=== PATIENT | female | born 1960 | race Caucasian/White ===

== ENCOUNTER → 2016-05-08 | Outpatient (CLI) | payer BC ==
[~2016-05-08] MED LIST: BENADRYL-DPS25 MG PO; CEPACOL SORE T1 EACH PO; COLACE-DPS100 MG PO; COMPAZINE10 MG PO; CYMBALTA60 MG PO; DULCOLAX-DPS10 MG PR; DULCOLAX-DPS5 MG PO; ELIQUIS2.5 MG PO; ESTRACE1 MG PO; FEOSOL-DPS325 MG PO; FLEET ENEMA133 ML PO; FLEXERIL-DPS10 MG PO; LIPITOR DPS10 MG PO; MAALOX DPS30 ML PO; MILK OF MAGNESI10 ML PO; MIRALAX PACKET17 GM PO; OXY IR DPS5 MG PO; SENOKOT S1 TAB PO; TUMS DPS500 MG PO; TYLENOL DPS325 MG PO; ULTRAM DPS50 MG PO; VITAMIN B-12500 MCG PO; VITAMIN D35000 UNI1 PO; XARELTO10 MG PO
== END | disposition home or self-care (01) ==
LOC: RAD.S 08:55
DX: Z12.31 Encounter for screening mammogram for malignant neoplasm of breast (principal)

== ENCOUNTER → 2016-06-29 | Outpatient (CLI) | payer BC | END | disposition home or self-care (01) | LOC: PTH.S 08:15 | DX: Z01.818 Encounter for other preprocedural examination (principal); E78.5 Hyperlipidemia, unspecified ==

== ENCOUNTER 2016-07-14 10:03 | Inpatient (IN) | payer BC ==
[~2016-07-14] VITALS: Ht 171.4 cm; Wt 84.0 kg
--- NOTE | 2016-07-14 14:37 | HP ---
ADMIT: 07/14/2016 RM/LOC: W.06 [facility] MR#: [id number] 2620 [facility] [address] [place] [id number] SANDRA SMITH [address] [place] [address] Pre-OP History and Physical SEX: F AGE: 56 : 1960 DATE OF SERVICE: CHIEF COMPLAINT: Bilateral knee pain. HISTORY OF PRESENT ILLNESS: The patient is a 56-year-old white female with bilateral knee DJD. She has failed nonoperative treatment, she desires total knee arthroplasty. She understands the risks and benefits of the procedure. PAST MEDICAL HISTORY: Significant for arthritis, jaw surgery, knee scope and hysterectomy. MEDICATIONS: 1. Atorvastatin. 2. Duloxetine. 3. Naprosyn. ALLERGIES: PENICILLIN. SOCIAL HISTORY: The patient is a former smoker, occasionally drinks alcohol. PHYSICAL EXAMINATION: HEENT: Normocephalic and atraumatic. CV: Regular rate and rhythm. LUNGS: Benign. ABDOMEN: Benign. NEUROLOGIC: Awake and oriented x3. MUSCULOSKELETAL: Shows the patient is short a degree to full extension. She has varus orientation of knees, 125-130 degrees of flexion. Tender over the medial joint line and patellofemoral joint. No ligamentous laxity. IMAGING DATA: X-rays show bilateral knee DJD, bone on bone medially and patellofemoral arthrosis, loose body in possible suprapatellar pouch on the left knee. ASSESSMENT AND PLAN: Bilateral knee degenerative joint disease. This point in time, I will plan left total knee arthroplasty. The patient understands the risks and benefits of the surgical intervention which included, but not limited to infection, DVT, arthrofibrosis, neurovascular injury, loosening, and , etc., and she desires to proceed. She will see Dr. Millard for preoperative medical clearance and follow postoperatively in the hospital for anticoagulation and any medical issues that may arise. Please refer to that H and P for any in-depth medical issues or medications changes. Tato Daniels MD/ derek JOB #: [id number] CC: Tato Daniels, Attending Physician ADMIT: 07/14/2016 RM/LOC: W.06 [facility] MR#: [id number] [address] [place] [phone] SANDRA SMITH [address] [place] [address] Pre-OP History and Physical SEX: F AGE: 56 : 1960 Trenton Guillermo [facility] Physician
[2016-07-18] MEDS ORDERED: LIPITOR DPS10 MG PO (20:37)
[2016-07-18] MEDS ORDERED: CYMBALTA60 MG PO (20:37)
[2016-07-18] MEDS ORDERED: ESTRACE1 MG PO (20:37)
[2016-07-18] MEDS ORDERED: VITAMIN D35000 UNI1 PO (20:38)
[2016-07-18] MEDS ORDERED: MIRALAX PACKET17 GM PO (20:38)
[2016-07-18] MEDS ORDERED: ELIQUIS2.5 MG PO (20:38)
[2016-07-18] MEDS ORDERED: SENOKOT S1 TAB PO (20:38)
[2016-07-18] MEDS ORDERED: TYLENOL DPS325 MG PO (20:39)
[2016-07-18] MEDS ORDERED: BENADRYL-DPS25 MG PO (20:40)
[2016-07-18] MEDS ORDERED: ULTRAM DPS50 MG PO (20:40)
[2016-07-18] MEDS ORDERED: COMPAZINE10 MG PO (20:40)
[2016-07-18] MEDS ORDERED: FLEXERIL-DPS10 MG PO (20:40)
[2016-07-18] MEDS ORDERED: DULCOLAX-DPS5 MG PO (20:41)
[2016-07-18] MEDS ORDERED: COLACE-DPS100 MG PO (20:41)
[2016-07-18] MEDS ORDERED: MAALOX DPS30 ML PO (20:41)
[2016-07-18] MEDS ORDERED: CEPACOL SORE T1 EACH PO (20:41)
[2016-07-18] MEDS ORDERED: DULCOLAX-DPS10 MG PR (20:42)
[2016-07-18] MEDS ORDERED: OXY IR DPS5 MG PO (20:42)
[2016-07-18] MEDS ORDERED: MILK OF MAGNESI10 ML PO (20:42)
[2016-07-18] MEDS ORDERED: TUMS DPS500 MG PO (20:42)
[2016-07-18] MEDS ORDERED: FEOSOL-DPS325 MG PO (20:43)
[2016-07-18] MEDS ORDERED: FLEET ENEMA133 ML PO (20:43)
--- NOTE | 2016-07-21 15:05 | OR ---
ADMIT: 07/14/2016 RM/LOC: 504 [facility] MR#: [id number] 2620 [facility] [address] [place] [phone] SANDRA SMITH [address] [place] [address] Operative/Delivery Room Report SEX: F AGE: 56 : 1960 SURGERY DATE: 07/14/2016 SURGEON: Tato Daniels MD PREOPERATIVE DIAGNOSIS: Left knee degenerative joint disease. POSTOPERATIVE DIAGNOSE: Left knee degenerative joint disease. PROCEDURE PERFORMED: Left total knee arthroplasty. ORGAN TUNER ELECTRONIC: MICHAEL Main ANESTHESIA: General. ESTIMATED BLOOD LOSS: Minimal. FLUIDS: Per anesthetic record. COMPLICATIONS: No complications. DRAINS: One drain. TOURNIQUET TIME: Approximately 78 minutes. CONDITION ON DISCHARGE: The patient returned to the recovery room in fair condition. INDICATION: The patient has DJD of the left knee. She desired total knee arthroplasty. She understood the risks and benefits of procedure and desired to proceed with the operation. PROCEDURE IN DETAIL: The patient was taken to the OR, transferred to the OR table. Spinal had been placed. Left lower extremity had a well-padded tourniquet placed. The left lower extremity was prepped and draped in the usual sterile fashion. It was exsanguinated and tourniquet was inflated to 250 mmHg. Due to the patient being restless, she underwent general anesthesia. Incision was made along the medial aspect of the tibial tubercle carried proximal to the patella through the skin and subcutaneous tissue with a skin knife. Medial arthrotomy was then performed with a #10 blade. The patella was everted and knee flexed. ACL, PCL, medial and lateral menisci excised. Step drill was then used to open the intramedullary canal of femur. I placed an IM alignment guide with the distal femoral cutting block down the intramedullary canal of the femur, set at 13 mm resection and 5 degrees of valgus, cut due to a slight flexion contracture. I pinned it to the anterior aspect of the distal femur and removed the IM alignment guide. I then cut the distal femur using an oscillating saw and this cutting block. I removed the cutting block and sized the femur to 3. I placed a size #3 four-in-one cutting block on the distal aspect of the femur in 3 degrees of external rotation, made the 4 appropriate cuts using an oscillating saw. I removed this cutting block and placed the box ADMIT: 07/14/2016 RM/LOC: 504 [facility] MR#: [id number] [address] [phone] SANDRA SMITH [address] [place] [address] Operative/Delivery Room Report SEX: F AGE: 56 : 1960 cutting jig in the distal aspect of the femur, and cut the box out of the distal femur using a reciprocating saw. The proximal tibia was then cut perpendicular to the long axis of the tibial shaft using the proximal tibial cutting guide and oscillating saw. The posterior aspect of the patella was cut and flushed with the posterior aspects of the quadriceps patella tendons using the patella cutting saw. This was sized at a 35 and step drilled with the guide. Trial components were then placed. A size #3 tray with 10 mm insert gave excellent range of motion, stability, and patellar tracking. After I had placed trial components, I then step drilled the femoral component and step drilled and cruciate punched. Trial component removed and all trial components were thoroughly irrigated the knee with bacitracin solution and injected with an Exparel-like compound. I then cemented the tibia, patella, and femoral components in place removing all extraneous cement as it dried. I then impacted the 10 mm insert in the tibial tray. Ran the knee through a range of motion. It had excellent range of motion, stability and patellar tracking. Thus, one deep drain was then placed. Medial arthrotomy was closed using #1 Vicryl. Subcutaneous tissue was closed using 2-0 Vicryl. Skin closed using man. Wounds were washed, dried, and dressed. Sterile Adaptic, 4x4s, ABD, Webril Kimo wrap, and ice pad were placed on top of the Kimo wrap. Drapes removed and tourniquet let down. The patient was reversed from general anesthesia. Transferred back to recovery room in fair condition. Tato Daniels MD/ derek JOB #: [id number] CC: Tato Daniels, Attending Physician Trenton Guillermo, Family Physician
--- NOTE | 2016-07-31 07:33 | DS ---
ADMIT: 07/14/2016 RM/LOC: 504 [facility] MR#: [id number] 26[address] [facility] [address] [place], [place] [phone] SANDRA SMITH [address] [place] [address] General Discharge Summary SEX: F AGE: 56 : 1960 ADMISSION DATE: 07/14/2016 DISCHARGE DATE: 07/17/2016 REASON FOR ADMISSION: Elective left total knee arthroplasty after failing conservative care. PREOPERATIVE DIAGNOSIS: Left knee degenerative joint disease. POSTOPERATIVE DIAGNOSIS: Left knee degenerative joint disease. PROCEDURE PERFORMED: Left total knee arthroplasty. SURGEON: Tato Daniels MD. WAREHOUSE DELIVERY DRIVER: Vikas Dominguez PA-C ANESTHESIA: General. ESTIMATED BLOOD LOSS: Minimal. COMPLICATIONS: None. ACTIVE MEDICAL PROBLEMS: Hyperlipidemia, osteoarthritis of both knees, jaw surgery, knee scope, and hysterectomy. HOSPITAL COURSE: The patient was admitted on 07/14/2016, for elective bilateral total knee arthroplasty. It was discovered that she had a bug bite on the right knee which appeared blistered, so the bilateral total knee arthroplasty was canceled and she was admitted for a left total knee arthroplasty, which was done by Dr. Daniels without any complications. The patient tolerated the procedure well. Postoperatively, her pain was well controlled with the use of oral analgesics. She did suffer from acute blood- loss anemia, her hemoglobin dropped to 10.5 on 07/16/2016, but she remained hemodynamically stable and did not require blood transfusion. She was doing well with pain control and physical therapy exercises and by 07/17/2016, she was stable, safe, and ready for discharge with plans for outpatient physical therapy. DISCHARGE MEDICATIONS: 1. Estradiol 1 mg every morning. 2. Atorvastatin 10 mg at bedtime. 3. Duloxetine 60 mg everyday. 4. Eliquis 2.5 mg twice daily. 5. MiraLax 17 g everyday. 6. Vitamin D 2000 units at bedtime. 7. Senokot 2 tablets twice daily. 8. Tylenol 650 mg every 4 hours as needed. 9. Tramadol 50 mg one to two tablets every 6 hours as needed. 10.Compazine 10 mg every 6 hours as needed for nausea. ADMIT: 07/14/2016 RM/LOC: 504 [facility] MR#: [id number] [address] [facility] [address] [place] [phone] SANDRA SMITH [address] [place] [address] General Discharge Summary SEX: F AGE: 56 : 1960 11.Flexeril 10 mg three times daily as needed for muscle spasms. 12.Benadryl 25 mg every 6 hours as needed. 13.Colace 100 mg twice daily as needed. 14.Dulcolax 5 mg twice daily as needed. 15.Maalox 30 mL every 6 hours as needed. 16.Milk of magnesia 10 mL daily as needed. 17.Oxycodone IR 5 mg one to two tablets every 4 hours as needed for breakthrough pain. 18.Tums 500 mg every four to six hours as needed. 19.Ferrous sulfate 325 mg everyday. DISCHARGE INSTRUCTIONS: The patient was discharged home with plans for outpatient physical therapy per total knee arthroplasty protocol. Follow up in the orthopedic office in 2 weeks for wound check, in 6 weeks with x-ray. Follow up with primary care as directed. MICHAEL Luciano / Tato Daniels MD / derek JOB #: [id number] CC: Tato Daniels MD, Attending Physician Trenton Guillermo MD, Family Physician
--- NOTE | 2016-08-11 13:58 | DS ---
ADMIT: 07/14/2016 RM/LOC: 504 [facility] MR#: [id number] [address] [facility] [address] [place] [phone] SHELBY SMITH [address] [place] [address] General Discharge Summary SEX: F AGE: 56 : 1960 ADMISSION DATE: 07/14/2016 DISCHARGE DATE: 07/17/2016 REASON FOR ADMISSION: Elective left total knee arthroplasty after failing conservative management for osteoarthritis. PREOPERATIVE DIAGNOSIS: Left knee degenerative joint disease. POSTOPERATIVE DIAGNOSIS: Left knee degenerative joint disease. PROCEDURE: Left total knee arthroplasty. ANESTHESIA: General. ESTIMATED BLOOD LOSS: Minimal. COMPLICATIONS: None. SURGEON: Tato Daniels MD. BLOOD COORDINATOR: Vikas Dominguez PA-C ACTIVE MEDICAL PROBLEMS: 1. Osteoarthritis. 2. Hyperlipidemia. HOSPITAL COURSE: Shelby was admitted on 07/14/2016 for elective left total knee arthroplasty, it was completed successfully by Dr. Daniels. There were no complications. Postoperatively, pain controlled with oral analgesics. She was originally scheduled for bilateral total knees, but due to wound on the right knee that was canceled and we did just proceed with a left. Nonetheless, she did do pretty well. She did have some nausea on postoperative day #1 that was stable by day #2. By postoperative day #3, she was remaining comfortable, participating well with physical therapy. She did experience mild acute surgical blood-loss anemia. Her hemoglobin dropped to 10.5, but she remained hemodynamically stable and did not require transfusion. On postop day #3, she was stable and ready for discharge with plan to go home for outpatient therapy. DISCHARGE MEDICATIONS: 1. Cymbalta 60 mg daily. 2. Eliquis 2.5 mg b.i.d. 3. Estrace 1 mg daily. 4. Lipitor 10 mg daily. 5. MiraLax p.r.n. 6. Senokot b.i.d. p.r.n. 7. Tylenol 650 mg q.4h p.r.n. 8. Ultram 50 mg, 1 to 2 q.6 p.r.n. ADMIT: 07/14/2016 RM/LOC: 504 [facility] MR#: [id number] [address] [phone] SHELBY SMITH [address] [place] [address] General Discharge Summary SEX: F AGE: 56 : 1960 9. Benadryl p.r.n. 10.Colace b.i.d. p.r.n. 11.Compazine 10 mg q.6 p.r.n. 12.Flexeril 10 mg t.i.d. p.r.n. 13.Maalox p.r.n. 14.Milk of Mag p.r.n. 15.OxyIR 5 mg, 1 to 2 q.4h p.r.n. 16.Tums p.r.n. DISCHARGE INSTRUCTIONS: Shelby will undergo therapy per total knee arthroplasty protocol. Follow up in the office in 2 weeks for wound check, 6 weeks with x-rays. Follow up primary care as directed. Delvis Kennedy PA-C / Tato Daniels MD / katiel JOB #: [id number] CC: Tato Daniels MD, Attending Physician Trenton Guillermo MD, Family Physician
[2016-09-04] MEDS ORDERED: VITAMIN B-12500 MCG PO (10:26)
[2016-09-04] MEDS ORDERED: TYLENOL DPS325 MG PO (10:26)
[2016-09-04] MEDS ORDERED: XARELTO10 MG PO (10:35)
== END 2016-07-17 13:41 | disposition home or self-care (01) | DRG 470 ==
LOC: 5MS 10:03 → WOR 10:03 → 5MS 14:37
PROVIDERS: ADMIT Orthopaedic Surgery
PROC: 0SRD0J9 Replacement of Left Knee Joint with Synthetic Substitute, Cemented, Open Approach (ICD-10-PCS; principal; 2016-07-14)
DX: M17.0 Bilateral primary osteoarthritis of knee (principal); D62 Acute posthemorrhagic anemia; E78.5 Hyperlipidemia, unspecified; R73.01 Impaired fasting glucose; J32.9 Chronic sinusitis, unspecified; E78.00 Pure hypercholesterolemia, unspecified; Z82.49 Family history of ischemic heart disease and other diseases of the circulatory system

== ENCOUNTER → 2016-08-18 | Outpatient (CLI) | payer BC | END | disposition home or self-care (01) | LOC: PTH.S 08:02 | DX: Z01.812 Encounter for preprocedural laboratory examination (principal); Z79.2 Long term (current) use of antibiotics ==